=== PATIENT | male | born 1995 | race African-American/Black ===

== ENCOUNTER 2021-10-06 04:05 | Emergency (ER) | payer OTHER ==
[2021-10-06] MEDS ORDERED: Tetracaine HCl/PF 0.5% 4 ML Bottle EYERT ONE (04:08)
[2021-10-06] MEDS ORDERED: Erythromycin Base 0.5% Ophth Oint 3.5 GM Tube EYERT ONE (04:49)
--- NOTE | 2021-10-06 04:57 | EDM.PDOC ---
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 Did wash his eye out on site. Brought to ER to be checked. Still has discomfort/irritation in right eye. No other acute changes/complaints. - Related Data Allergies Allergy/AdvReac Type Severity Reaction Status Date / Time No Known Allergies Allergy Verified 10/06/21 04:14 Home Meds: Home Meds . [No Known Home Meds] 10/06/21 [History] Past Medical History - Past Health History Medical/Surgical History: Denies Medical/Surgical History ED ROS GENERAL - Review of Systems Review Of Systems: Comprehensive ROS is negative, except as noted in HPI. ED EXAM, GENERAL - Physical Exam Exam: See Below Exam Limited By: No Limitations General Appearance: Alert, WD/WN, No Apparent Distress Eye Exam: Right Eye: Conjunctival Injection, Other (stippling right lower cornea noted with staining), Bilateral Eye: EOMI, PERRL Ears: Normal External Exam Nose: No: Nasal Deformity, Nasal Swelling, Nasal Drainage Throat/Mouth: Normal Lips, Normal Voice, No Airway Compromise Head: Atraumatic, Normocephalic Neck: Supple Respiratory/Chest: No Respiratory Distress Neurological: Alert, Oriented, Normal Cognition, No Motor/Sensory Deficits Psychiatric: Normal Affect, Normal Mood Skin Exam: Warm, Dry, Intact, Normal Color Course - Orders/Labs/Meds Meds: Medications Discontinued Medications Generic Name Dose Route Start Last Admin Trade Name Los PRN Reason Stop Dose Admin Erythromycin 1 gm 10/06/21 04:49 10/06/21 04:54 Erythromycin Base 0.5% Ophth Oint 3.5 Gm Tube EYERT 10/06/21 04:50 1 applic ONETIME ONE Administration Tetracaine HCl 1 ml 10/06/21 04:08 10/06/21 04:15 Tetracaine Hcl/Pf 0.5% 4 Ml Bottle EYERT 10/06/21 04:09 1 ml ASDIRECTED ONE Administration - Re-Assessments/Exams Free Text/Narrative Re-Assessment/Exam: 10/06/21 05:03 No obvious foreign body noted during exam. Some stippling noted lower half cornea on right after fluorescein staining. Vision 20/40 left and 20/30 right. Discomfort improved with Tetracaine. Plan at this time is to have patient place erythromycin eye ointment in affected eye 4-5 times a day. No work for 24 hours. To get re-evaluated in [place] tomorrow if no significant improvement of discomfort noted by tomorrow morning. Departure - Departure Time of Disposition: 04:53 Disposition: Home, Self-Care 01 Condition: Good Clinical Impression: Right corneal abrasion - Discharge Information *PRESCRIPTION DRUG MONITORING PROGRAM REVIEWED*: Not Applicable *COPY OF PRESCRIPTION DRUG MONITORING REPORT IN PATIENT MG: Not Applicable Instructions: Corneal Abrasion, [id number] Referrals: PCP,None [Primary Care Provider] - Forms: ED Department Discharge Additional Instructions: Apply the eye ointment (small amount) in the right eye 4-5 times a day. Rest today/tonight. If you do not note significant improvement by tomorrow morning y ou will need to get rechecked by a provider that has access to a slit lamp. This will allow better visualization of the eye. [facility] or [facility] ER[facility] should have them. A local eye doctor/eye provider will also have one. You might be able to get an appointment with a local eye doctor which would be faster than going to the ER. Follow up as needed if you are feeling much better and continue to use the eye ointment for 4-5 days.
== END 2021-10-06 05:10 | disposition home or self-care (01) ==
LOC: LL.ED 04:05
DX: S05.01XA Injury of conjunctiva and corneal abrasion without foreign body, right eye, initial encounter (principal); W22.09XA Striking against other stationary object, initial encounter
CPT/HCPCS: 99283; A9270